=== PATIENT | male | born 2000 ===

== ENCOUNTER 2023-12-04 12:43 | Outpatient (AMB) | payer OTHER, SELFPAY ==
--- NOTE | 2023-12-04 12:42 | MHC.OFFWIV ---
Intake Vital Signs 12/04/23 12:47 Height 5 ft 6 in Weight 153 lb BMI 24.7 BP 130/72 Blood Pressure Location Lt brachial Position Sitting Pulse 60 Pulse Source Pulse Oximeter Temp 97.8 F Temp Source Temporal Artery Scan Pulse Oximetry (%) 98 Oxygen Delivery Method Room Air Intake Visit Reasons: left knee swelling for 3weeks Intake Note: pt is here today from lft knee swelling started 3 weeks ago Patient Tobacco Use Status: Never used Tobacco Allergies acetaminophen [From Percocet] Allergy (Mild, Verified 12/04/23 13:16) hives oxycodone [From Percocet] Allergy (Mild, Verified 12/04/23 13:16) hives Medication List - Last Reconciled 12/04/23 by DAINEL Vega No Known Home Meds Do you need a note to return to daycare/school/sports/work: Yes HPI HPI Comments History of Present Illness Details Patient is a 23-year-old male in today for sick visit. 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 Patient states he has a history of the same happening. Patient denies recent fevers or chills. Patient denies tingling or numbness. PFSH Social History Patient Tobacco Use Status: Never used Tobacco Review of Systems Const All systems reviewed & are unremarkable except as noted in HPI and below Musc Reports arthralgias (Left knee), Reports joint swelling (Left knee) and Reports limited range of motion Physical Exam Vital Signs: Last Vital Signs Temp 97.8 F 12/04/23 12:47 Pulse 60 12/04/23 12:47 BP 130/72 12/04/23 12:47 Pulse Ox 98 12/04/23 12:47 Oxygen Delivery Method Room Air 12/04/23 12:47 BMI result Body Mass Index 24.7 Vital signs reviewed and are stable. Const General: cooperative and no acute distress Orientation/consciousness: patient oriented x3 Limitations: no limitations Resp Effort & Inspection: normal respiratory effort Auscultation: clear to auscultation bilaterally Cardio Rate: regular rate Rhythm: regular rhythm Heart sounds: S1 normal heart sound present and S2 normal heart sound present Peripheral pulses: Peripheral pulses 2+ throughout Neuro General: patient oriented x3 Extrem Left lower extremity: full ROM and knee (Swelling around patella. Slight tenderness); joint enlargement noted Assessment & Plan Assessment & Plan (1) Effusion, left knee: Comment: Will obtain x-ray of left knee. Will give patient meloxicam. Will fit patient with knee brace. Code(s): M25.462 - Effusion, left knee Plan: Take your medications as prescribed. If you were prescribed antibiotics today, it is important that you take your medication to their entirety, do not skip any doses, do not finish them early. Follow-up with your primary care provider this week. Return to the emergency department with new or worsening symptoms. Such as fevers, chills, chest pain, shortness of breath, nausea, vomiting, dizziness, headache, vision changes, lethargy In case of emergency call 911 Plan Follow-up with PCP Medications: New meloxicam 15 mg PO DAILY 14 tabs 0RF Coding Level of Care Code Est Pt Level 3 (34446) Diagnoses Effusion, left knee M25.462 Time Spent (min) 28
[2023-12-04 12:47] VITALS: BP 130/72; PULSE 60; TEMP 36.6; O2SAT 98; BMI 24.7
== END 2023-12-04 13:54 | disposition home or self-care (01) ==
PROVIDERS: Visit Provider Nurse Practitioner Primary Care
DX: M25.462 Effusion, left knee (principal)
CPT/HCPCS: 99213

== ENCOUNTER 2023-12-04 13:19 | Outpatient (REF) | payer OTHER, SELFPAY ==
--- NOTE | ~2023-12-04 | XR_ITS ---
EXAMINATION: XR KNEE, LEFT CLINICAL INFORMATION: Knee pain COMPARISON: None available. TECHNIQUE: Four views of the left knee. FINDINGS: No acute fracture. Small-moderate joint effusion. Alignment is anatomic. Joint spaces are maintained. No abnormal soft tissue calcification. XR/XR knee LT 4V IMPRESSION: Small-moderate joint effusion. No radiographic evidence of acute fracture.
== END 2023-12-04 13:20 | disposition home or self-care (01) ==
LOC: HO.HMGCX 13:19
PROVIDERS: Visit Provider Nurse Practitioner Primary Care
DX: M25.562 Pain in left knee (principal)
CPT/HCPCS: 73564